=== PATIENT | female | born 1980 | race Caucasian/White ===

== ENCOUNTER 2017-01-05 22:22 | Emergency (ER) | payer SELFPAY ==
--- NOTE | 2017-01-05 23:04 | ED CLINICAL REPORT ---
Clinical Report - Physicians/Mid Levels [facility] [address] [place] [address] 01/05/2017 22:21 Patient: ABHAY JAIN Time Seen: 2245; initial patient contact, initial documentation, patient care assumed. Arrived- By private vehicle. Historian- patient. HISTORY OF PRESENT ILLNESS Chief Complaint: SORE THROAT. This started yesterday and is still present. Pain described as moderate. The patient has had a sore throat. No mouth sores, nasal discharge or ear pain. Similar symptoms previously: None. Recent medical care: Not recently seen/assessed. REVIEW OF SYSTEMS The patient has had fever of 103 F and enlarged lymph nodes. No cough or difficulty breathing. All systems otherwise negative, except as recorded above. PAST HISTORY See nurses notes. PROBLEMS: Vaginitis. --22:37 Johnnie Brandt RDevonteN. ADDITIONAL SURGERIES: no known surgeries. SOCIAL HISTORY Heavy tobacco smoker. History of occasional drug use: marijuana. No alcohol use. No recent travel. Is a local resident. FAMILY HISTORY Negative. ADDITIONAL NOTES The nursing notes have been reviewed with agreement regarding the chief complaint, HPI, ROS, PMH and patient medications and allergies. PHYSICAL EXAM Vital Signs: 01/05/2017 22:34 BP: 102/67. HR: 102. RR: 17. O2 saturation: 99%. Temp: 98.3 F. Pain level now: 6/10. Have been reviewed as normal and appear to be correct. Appearance: Alert. No acute distress. Head: Normal external inspection. Eyes: Pupils equal, round and reactive to light. Conjunctivae and eyelids normal. ENT: Ears normal. Nose normal. Pharynx abnormal. Right-sided tonsillar exudate, swelling and erythema. Left-sided tonsillar exudate, swelling and erythema (+2 hypertrophy). No right tonsillar abscess or left tonsillar abscess. No membrane suggesting mononucleosis. Lips normal. Gums normal. No trismus present. Uvula midline. Neck: Lymphadenopathy. Thyroid not normal. Neck not supple. Abnormal inspection. Moderate right anterior neck and moderate left anterior neck lymphadenopathy present. Trachea midline. Respiratory: No respiratory distress. Skin: Normal skin color. No rash. Normal skin turgor. Extremities: Extremities exhibit normal ROM. Extremities nontender. Neuro: Oriented X 3. No motor deficit. No sensory deficit. PROGRESS AND PROCEDURES Patient counseled in person regarding the patient's stable condition and diagnosis. 23:03. Differential Diagnosis: Other possible considerations: pharyngitis, tonsillitis, mono, tonsillar abscess, flu, viral illness. Above considerations are based on history and physical exam. Differential diagnosis was discussed with patient. Disposition: Discharged home in good and improved condition (23:03). Condition: good and stable. CLINICAL IMPRESSION Acute exudative streptococcal tonsillitis INSTRUCTIONS Alternate Tylenol (Acetaminophen) and Motrin (Ibuprofen) for fever, temperature greater than 101 degrees. Take according to label instructions. Do not work today, for two days. Drink plenty of fluids for the next 24 hours until better. Warnings: GENERAL WARNINGS: Return or contact your physician immediately if your condition worsens or changes unexpectedly, if not improving as expected, or if other problems arise. Specifically return if problem worsens. Prescription Medications: Zofran 4 mg: Take 1 orally every six hours as needed for nausea/vomiting. Dispense ten (10). No refills. Substitution is permissible. Amoxicillin 500 mg tablets: Take 1 orally every 8 hours for 10 days. Dispense thirty (30). No refills. Motrin 600 mg tablets: take 1 tablet orally every 6 hours as needed for pain or fever. Dispense thirty (30). No refill. Follow-up: Follow up with your doctor in about three days even if well. Call for an appointment. Summary of care provided to patient. Understanding of the discharge instructions verbalized by patient. (Electronically signed by Luna Kay A.R.N.P. 01/05/2017 23:58)
--- NOTE | 2017-01-05 23:04 | ED ORDER SUMMARY ---
..... Patient: ABHAY JAIN OrderSheet [facility] VisitID: [id number] [address] [place] [address] 36y, F Registration Date/Time: 01/05/2017 ORDER SHEET Weight: 90.7 kg (stated) Allergies: No Known Drug Allergy GENERAL ORDERS: Rapid Influenza Screen (Nasal Pharyngeal) (swab) Urgent (22:44 01/05/2017 JQuivey R.N. per protocol) (Ack 22:48 Marleneekima) (23:30 JQuivey R.N.) Culture, Strep Screen Urgent (22:44 01/05/2017 JQuivey R.N. per protocol) (Ack 22:[facility] (23:30 JQuivey R.N.) MEDICATION ORDERS: IV FLUIDS: ORDER SHEET NOTES: [Electronically signed by Johnnie Brandt R.N. (23:35 01/05/2017)] [Electronically signed by Luna KayNDevontePDevonte (23:58 01/05/2017)] [Electronically locked/signed by Johnnie Brandt R.N. (23:35 01/05/2017)]
--- NOTE | 2017-01-05 23:04 | ED ORDER SUMMARY ---
..... Patient: ABHAY JAIN OrderSheet [facility] VisitID: [id number] [address] [place] [address] 36y, F Registration Date/Time: 01/05/2017 ORDER SHEET Weight: 90.7 kg (stated) Allergies: No Known Drug Allergy GENERAL ORDERS: Rapid Influenza Screen (Nasal Pharyngeal) (swab) Urgent (22:44 01/05/2017 JQuivey R.N. per protocol) (Ack 22:48 Marleneekima) (23:30 JQuivey R.N.) Culture, Strep Screen Urgent (22:44 01/05/2017 JQuivey R.N. per protocol) ([facility]ck 22:[facility] (23:30 JQuivey R.N.) MEDICATION ORDERS: IV FLUIDS: ORDER SHEET NOTES: [Electronically signed by Johnnie Brandt R.N. (23:35 01/05/2017)] [Electronically signed by Luna KayNDevontePDevonte (23:58 01/05/2017)] [Electronically locked/signed by Johnnie Brandt R.N. (23:35 01/05/2017)]
--- NOTE | 2017-01-05 23:04 | ED NURSING NOTES ---
Clinical Report - Nurses [facility] [address] [address] 01/05/2017 22:21 Patient: ABHAY JAIN TRIAGE Triage time 22:35. Acuity: LEVEL 3. Chief Complaint: FEVER, MUSCLE ACHES and SORE THROAT (Swollen glands). 22:38. Alert. SEPSIS SCREEN: Sepsis Screen. Negative (no infection suspected/documented). --22:38 Johnnie Brandt R.N. 22:34 01/05/17. BP: 102/67. HR: 102. RR: 17. O2 saturation: 99% on room air. Temp: 98.3 F (oral). Pain level now: 04/27. --22:38 Johnnie Brandt R.N. Weight: 90.7 kg stated. Height/Length: 73 inches Per Patient. BMI: 26.4. --22:36 Johnnie Brandt R.N. Medications None. --22:37 Johnnie Brandt R.N. Allergies No Known Drug Allergy. --22:37 Johnnie Brandt R.N. History Arrived by private vehicle. Historian: patient. Accompanied by friend. Primary physician (None). Onset. (Saturday). 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 PAST MEDICAL HX: Immunizations: up-to-date. Last normal menstrual period- 9 years ago. Uses an intrauterine device. SOCIAL HX: Current every day heavy tobacco smoker- less than 1 pack per day. History of occasional drug use: marijuana. No alcohol use. No infectious disease exposure. ABUSE ASSESSMENT: No report of abuse. FALL RISK ASSESSMENT: Fall risk assessment completed. No fall risk identified. NUTRITIONAL RISK ASSESSMENT: The nutritional risk assessment revealed no deficiencies. FUNCTIONAL ASSESSMENT: Functional assessment: no impairments noted. LEARNING NEEDS ASSESSMENT: The learning needs assessment revealed no barriers. SKIN INTEGRITY ASSESSMENT: Skin integrity risk assessment completed. No skin integrity risk identified. --22:38 Johnnie Brandt R.N. PROBLEMS: Vaginitis. --22:37 Johnnie Brandt R.N. ADDITIONAL SURGERIES: no known surgeries. Interventions ID band on patient. To treatment room. --22:38 Johnnie Brandt R.N. PHYSICAL ASSESSMENT 22:39. Ambulatory to room. Patient gowned. GENERAL / NEURO / PSYCH: Alert. Oriented X 4. HEENT: No facial asymmetry noted. Mucous membranes are pink. RESPIRATORY: Respirations not labored. SKIN: Skin intact. Skin is warm and dry. Normal skin turgor. --22:39 Johnnie Brandt R.N. NURSING PROGRESS NOTES 22:39. Head of bed elevated. Two patient identifiers checked. Call light placed in reach. Bed placed in lowest position. Brakes of bed on. Patient ready for evaluation- chart flagged. --22:39 Johnnie Brandt R.N. 22:43. Patient ID band checked for patient name and birthdate: patient confirmed. Flu swab obtained by RN via nasal pharyngeal swab. Labeled in the presence of the patient and sent to lab. Patient ID band checked for patient name and birthdate: patient confirmed. Throat swab obtained for rapid strep; labeled in the presence of the patient and sent to lab. --22:43 Johnnie Brandt R.N. 23:30. The patient is calm and resting quietly. RESPIRATORY: No respiratory distress. SKIN: Skin is warm and dry. Skin color within normal limits. --23:35 Johnnie Brandt R.N. DISPOSITION / DISCHARGE Departure time: 23:33. Condition at departure: stable. No learning barriers present. Reviewed medication(s) side effects, precautions, dosing and course information. Prescription(s) given to the patient. Patient verbalized understanding. Written instructions provided in Wolof. The patient was discharged home and accompanied by pals nurse. She left the Emergency Department ambulatory and via private vehicle. Sample Paster driving. FALL RISK ASSESSMENT: Fall risk assessment completed. No fall risk identified. --23:35 Johnnie Brandt R.N. 23:30 01/05/17. BP: 106/61. HR: 99. RR: 17. O2 saturation: 97% on room air. Pain level now: 01/25. --23:35 Johnnie Brandt R.N. Locked/Released at 01/05/2017 23:35 by Johnnie Brandt R.N.
--- NOTE | 2017-01-05 23:04 | ED NURSING NOTES ---
Clinical Report - Nurses [facility] [address] [place] [address] 01/05/2017 22:21 Patient: ABHAY JAIN TRIAGE Triage time 22:35. Acuity: LEVEL 3. Chief Complaint: FEVER, MUSCLE ACHES and SORE THROAT (Swollen glands). 22:38. Alert. SEPSIS SCREEN: Sepsis Screen. Negative (no infection suspected/documented). --22:38 Johnnie Brandt R.N. 22:34 01/05/17. BP: 102/67. HR: 102. RR: 17. O2 saturation: 99% on room air. Temp: 98.3 F (oral). Pain level now: 04/27. --22:38 Johnnie Brandt R.N. Weight: 90.7 kg stated. Height/Length: 73 inches Per Patient. BMI: 26.4. --22:36 Johnnie Brandt R.N. Medications None. --22:37 Johnnie Brandt R.N. Allergies No Known Drug Allergy. --22:37 Johnnie Brandt R.N. History Arrived by private vehicle. Historian: patient. Accompanied by friend. Primary physician (None). Onset. (Saturday). 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 PAST MEDICAL HX: Immunizations: up-to-date. Last normal menstrual period- 9 years ago. Uses an intrauterine device. SOCIAL HX: Current every day heavy tobacco smoker- less than 1 pack per day. History of occasional drug use: marijuana. No alcohol use. No infectious disease exposure. ABUSE ASSESSMENT: No report of abuse. FALL RISK ASSESSMENT: Fall risk assessment completed. No fall risk identified. NUTRITIONAL RISK ASSESSMENT: The nutritional risk assessment revealed no deficiencies. FUNCTIONAL ASSESSMENT: Functional assessment: no impairments noted. LEARNING NEEDS ASSESSMENT: The learning needs assessment revealed no barriers. SKIN INTEGRITY ASSESSMENT: Skin integrity risk assessment completed. No skin integrity risk identified. --22:38 Johnnie Brandt R.N. PROBLEMS: Vaginitis. --22:37 Johnnie Brandt R.N. ADDITIONAL SURGERIES: no known surgeries. Interventions ID band on patient. To treatment room. --22:38 Johnnie Brandt R.N. PHYSICAL ASSESSMENT 22:39. Ambulatory to room. Patient gowned. GENERAL / NEURO / PSYCH: Alert. Oriented X 4. HEENT: No facial asymmetry noted. Mucous membranes are pink. RESPIRATORY: Respirations not labored. SKIN: Skin intact. Skin is warm and dry. Normal skin turgor. --22:39 Johnnie Brandt R.N. NURSING PROGRESS NOTES 22:39. Head of bed elevated. Two patient identifiers checked. Call light placed in reach. Bed placed in lowest position. Brakes of bed on. Patient ready for evaluation- chart flagged. --22:39 Johnnie Brandt R.N. 22:43. Patient ID band checked for patient name and birthdate: patient confirmed. Flu swab obtained by RN via nasal pharyngeal swab. Labeled in the presence of the patient and sent to lab. Patient ID band checked for patient name and birthdate: patient confirmed. Throat swab obtained for rapid strep; labeled in the presence of the patient and sent to lab. --22:43 Johnnie Brandt R.N. 23:30. The patient is calm and resting quietly. RESPIRATORY: No respiratory distress. SKIN: Skin is warm and dry. Skin color within normal limits. --23:35 Johnnie Brandt R.N. DISPOSITION / DISCHARGE Departure time: 23:33. Condition at departure: stable. No learning barriers present. Reviewed medication(s) side effects, precautions, dosing and course information. Prescription(s) given to the patient. Patient verbalized understanding. Written instructions provided in Yakut. The patient was discharged home and accompanied by laminating machine feeder. She left the Emergency Department ambulatory and via private vehicle. 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 FALL RISK ASSESSMENT: Fall risk assessment completed. No fall risk identified. --23:35 Johnnie Brandt R.N. 23:30 01/05/17. BP: 106/61. HR: 99. RR: 17. O2 saturation: 97% on room air. Pain level now: 01/25. --23:35 Johnnie Brandt R.N. Locked/Released at 01/05/2017 23:35 by Johnnie Brandt R.N.
--- NOTE | 2017-01-05 23:59 | ED MED RECONCILIATION SUMMARY ---
Patient: ABHAY JAIN Medication Reconciliation Report [facility] VisitID: [id number] [address] [place] [address] 36y, F Registration Date/Time: 01/05/2017 Weight: 90.7 kg Height/Length: 73 in. BMI: 26.4 ALLERGIES: No Known Drug Allergy The patient's Home Medications are listed below: NONE. The source(s) of the original Home Medication information: Not obtained. The following Medications were given to the patient in the Emergency Department: None. The following Medications were prescribed to the patient: Zofran 4 mg: Take 1 orally every six hours as needed for nausea/vomiting. Dispense ten (10). No refills. Substitution is permissible. -- Luna Kay, A.R.N.P. Amoxicillin 500 mg tablets: Take 1 orally every 8 hours for 10 days. Dispense thirty (30). No refills. -- Luna Kay, A.R.N.P. Motrin 600 mg tablets: take 1 tablet orally every 6 hours as needed for pain or fever. Dispense thirty (30). No refill. -- Luna Kay A.R.N.P.
--- NOTE | 2017-01-05 23:59 | ED MAR SUMMARY ---
..... Medication Administration Record [facility] [address], [place] [id number] Patient: ABHAY JAIN Visit ID: [id number] 36y, F Weight: 90.7 kg Height/Length: 73 in BMI: 26.4 ALLERGIES: No Known Drug Allergy
--- NOTE | 2017-01-05 23:59 | ED MED RECONCILIATION SUMMARY ---
Patient: ABHAY JAIN Medication Reconciliation Report [facility] VisitID: [id number] [address] [place] [address] 36y, F Registration Date/Time: 01/05/2017 Weight: 90.7 kg Height/Length: 73 in. BMI: 26.4 ALLERGIES: No Known Drug Allergy The patient's Home Medications are listed below: NONE. The source(s) of the original Home Medication information: Not obtained. The following Medications were given to the patient in the Emergency Department: None. The following Medications were prescribed to the patient: Zofran 4 mg: Take 1 orally every six hours as needed for nausea/vomiting. Dispense ten (10). No refills. Substitution is permissible. -- Luna Kay, A.R.N.P. Amoxicillin 500 mg tablets: Take 1 orally every 8 hours for 10 days. Dispense thirty (30). No refills. -- Luna Kay, A.R.N.P. Motrin 600 mg tablets: take 1 tablet orally every 6 hours as needed for pain or fever. Dispense thirty (30). No refill. -- Luna Kay A.R.N.P.
--- NOTE | 2017-01-05 23:59 | ED MAR SUMMARY ---
..... Medication Administration Record [facility] [address] [id number] Patient: ABHAY JAIN Visit ID: [id number] 36y, F Weight: 90.7 kg Height/Length: 73 in BMI: 26.4 ALLERGIES: No Known Drug Allergy
--- NOTE | 2017-01-05 23:59 | ED DISCHARGE INSTRUCTIONS ---
Patient: ABHAY JAIN General Instructions [facility] VisitID: [id number] [address] [place] [address] 36y, F Registration Date/Time: 01/05/2017 Acute exudative streptococcal tonsillitis INSTRUCTIONS Alternate Tylenol (Acetaminophen) and Motrin (Ibuprofen) for fever, temperature greater than 101 degrees. Take according to label instructions. Do not work today, for two days. Drink plenty of fluids for the next 24 hours until better. Warnings: GENERAL WARNINGS: Return or contact your physician immediately if your condition worsens or changes unexpectedly, if not improving as expected, or if other problems arise. Specifically return if problem worsens. Prescription Medications: Zofran 4 mg: Take 1 orally every six hours as needed for nausea/vomiting. Dispense ten (10). No refills. Substitution is permissible. Amoxicillin 500 mg tablets: Take 1 orally every 8 hours for 10 days. Dispense thirty (30). No refills. Motrin 600 mg tablets: take 1 tablet orally every 6 hours as needed for pain or fever. Dispense thirty (30). No refill. Follow-up: Follow up with your doctor in about three days even if well. Call for an appointment. Summary of care provided to patient. Understanding of the discharge instructions verbalized by patient. ADDITIONAL INFORMATION Pharyngitis: Strep [Presumed] Your illness has the signs of a strep throat infection. Strep throat is a contagious illness. It is spread by coughing, kissing or by touching others after touching your mouth or nose. Symptoms include throat pain worse with swallowing, aching all over, headache and fever. You will be treated with an antibiotic, which should make you start to feel better within 1-2 days. Home Care: Rest at home and drink plenty of fluids to avoid dehydration. No school or work for the first two days on antibiotics. You will not be contagious after this time, and if you are feeling better, you can return to school or work. Take your antibiotics for a full 10 days, even if you feel better after the first few days of treatment. This is very important to prevent complications from the strep infection (such as heart or kidney disease). Children: Use acetaminophen (Tylenol) for fever, fussiness or discomfort. In infants over six months of age, you may use ibuprofen (Children's Motrin) instead of Tylenol. [NOTE: If your child has chronic liver or kidney disease or ever had a stomach ulcer or GI bleeding, talk with your doctor before using these medicines.] (Aspirin should never be used in anyone under 18 years of age who is ill with a fever. It may cause severe liver damage.) Adults: You may use acetaminophen (Tylenol) or ibuprofen (Motrin, Advil) to control pain or fever, unless another medicine was prescribed for this. [NOTE: If you have chronic liver or kidney disease or ever had a stomach ulcer or GI bleeding, talk with your doctor before using these medicines.] Throat lozenges or sprays (Chloraseptic and others) will reduce pain. Gargling with warm salt water will also reduce throat pain. Dissolve 1/2 teaspoon of salt in 1 glass of warm water. This is especially useful just before meals. Follow Up with your doctor or as directed by our staff if you are not improving over the next week. Get Prompt Medical Attention if any of the following occur: Fever over 100.5F (38.0C) oral, or over 101.5F (38.6C) rectal for more than three days New or worsening ear pain, sinus pain or headache Painful lumps in the back of your neck Unable to swallow liquids or open your mouth wide due to throat pain Trouble breathing or noisy breathing Muffled voice New rash Fever Control (Adult) A fever is a natural reaction of the body to an illness. In most cases, the temperature itself is not harmful. It actually helps the body fight infections. A fever does not need to be treated unless you feel very uncomfortable. Home Care If you feel warm, check your temperature. If you feel very uncomfortable and your temperature is at or higher than 100.4F (38C) oral, you may take acetaminophen (Tylenol) every 4 to 6 hours. If you cant take or keep down oral medicine, ask your pharmacist for Tylenol suppositories, which you can get without a prescription. If the fever does not respond to acetaminophen within 1 hour, take ibuprofen (Advil or Motrin). If this works, keep taking the ibuprofen every 6 to 8 hours. Note: If you have chronic liver or kidney disease or ever had a stomach ulcer or GI bleeding, talk with your doctor before using these medications. If either medication alone does not keep the fever down, you may alternate the two medicines every 3 to 4 hours, only if your healthcare provider has instructed you to do so. For example, take Motrin then wait 3 hours, take Tylenol then wait 3 hours, take Motrin, and so on. Follow your healthcare providers instructions exactly. Clothing: Keep clothing light because excess body heat is lost through the skin. The fever will go up if you wear extra layers or wrap in blankets. Fluids: Fever causes the body to lose water through evaporation. Drink plenty of fluids such as water, juice, clear sodas, hernandez krystal, or lemonade. Do not use aspirin in anyone under 18 years of age who is ill with a fever. It can cause severe liver damage. Follow Up with your doctor or as advised by our staff if you do not get better after 48 hours. Get Prompt Medical Attention if any of the following occur: Fever does not get better after taking fever medication Fast or difficult breathing Earache, sinus pain, stiff or painful neck, headache, repeated diarrhea or vomiting You feel unusually irritable, drowsy, or confused A rash appears You feel weak or dizzy, or that you might faint Ondansetron Oral disintegrating tablet What is this medicine? ONDANSETRON (on RADHA se madeleine) is used to treat nausea and vomiting caused by chemotherapy. It is also used to prevent or treat nausea and vomiting after surgery. How should I use this medicine? These tablets are made to dissolve in the mouth. Do not try to push the tablet through the foil backing. With dry hands, peel away the foil backing and gently remove the tablet. Place the tablet in the mouth and allow it to dissolve, then swallow. While you may take these tablets with water, it is not necessary to do so. Talk to your loss prevention coordinator regarding the use of this medicine in children. Special care may be needed. What side effects may I notice from receiving this medicine? Side effects that you should report to your doctor or health lawn care worker as soon as possible: allergic reactions like skin rash, itching or hives, swelling of the face, lips, or tongue breathing problems dizziness fast or irregular heartbeat feeling faint or lightheaded, falls fever and chills swelling of the hands and feet tightness in the chest Side effects that usually do not require medical attention (report to your doctor or health lawn care worker if they continue or are bothersome): constipation or diarrhea headache What may interact with this medicine? Do not take this medicine with any of the following medications: -apomorphine -cisapride -dofetilide -dronedarone -pimozide -thioridazine -ziprasidone This medicine may also interact with the following medications: -carbamazepine -phenytoin -rifampicin -tramadol -other medicines that prolong the QT interval (cause an abnormal heart rhythm) What if I miss a dose? If you miss a dose, take it as soon as you can. If it is almost time for your next dose, take only that dose. Do not take double or extra doses. Where should I keep my medicine? Keep out of the reach of children. Store between 2 and 30 degrees C (36 and 86 degrees F). Throw away any unused medicine after the expiration date. What should I tell my health care provider before I take this medicine? They need to know if you have any of these conditions: heart disease history of irregular heartbeat liver disease low levels of magnesium or potassium in the blood an unusual or allergic reaction to ondansetron, granisetron, other medicines, foods, dyes, or preservatives or trying to get breast-feeding What should I watch for while using this medicine? Check with your doctor or health lawn care worker as soon as you can if you have any sign of an allergic reaction. Amoxicillin Trihydrate Oral tablet What is this medicine? AMOXICILLIN (a mox i GERA in) is a penicillin antibiotic. It is used to treat certain kinds of bacterial infections. It will not work for colds, flu, or other viral infections. How should I use this medicine? Take this medicine by mouth with a glass of water. Follow the directions on your prescription label. You may take this medicine with food or on an empty stomach. Take your medicine at regular intervals. Do not take your medicine more often than directed. Take all of your medicine as directed even if you think your are better. Do not skip doses or stop your medicine early. Talk to your loss prevention coordinator regarding the use of this medicine in children. While this drug may be prescribed for selected conditions, precautions do apply. What side effects may I notice from receiving this medicine? Side effects that you should report to your doctor or health lawn care worker as soon as possible: allergic reactions like skin rash, itching or hives, swelling of the face, lips, or tongue breathing problems dark urine redness, blistering, peeling or loosening of the skin, including inside the mouth seizures severe or watery diarrhea trouble passing urine or change in the amount of urine unusual bleeding or bruising unusually weak or tired yellowing of the eyes or skin Side effects that usually do not require medical attention (report to your doctor or health lawn care worker if they continue or are bothersome): dizziness headache stomach upset trouble sleeping What may interact with this medicine? amiloride control pills chloramphenicol macrolides probenecid sulfonamides tetracyclines What if I miss a dose? If you miss a dose, take it as soon as you can. If it is almost time for your next dose, take only that dose. Do not take double or extra doses. Where should I keep my medicine? Keep out of the reach of children. Store between 68 and 77 degrees F (20 and 25 degrees C). Keep bottle closed tightly. Throw away any unused medicine after the expiration date. What should I tell my health care provider before I take this medicine? They need to know if you have any of these conditions: asthma kidney disease an unusual or allergic reaction to amoxicillin, other penicillins, cephalosporin antibiotics, other medicines, foods, dyes, or preservatives or trying to get breast-feeding What should I watch for while using this medicine? Tell your doctor or health lawn care worker if your symptoms do not improve in 2 or 3 days. Take all of the doses of your medicine as directed. Do not skip doses or stop your medicine early. If you are diabetic, you may get a false positive result for sugar in your urine with certain brands of urine tests. Check with your doctor. Do not treat diarrhea with [id number] products. Contact your doctor if you have diarrhea that lasts more than 2 days or if the diarrhea is severe and watery. Ibuprofen Oral tablet What is this medicine? IBUPROFEN (eye BYOO proe fen) is a non-steroidal anti-inflammatory drug (NSAID). It is used for dental pain, fever, headaches or migraines, osteoarthritis, rheumatoid arthritis, or painful monthly periods. It can also relieve minor aches and pains caused by a cold, flu, or sore throat. How should I use this medicine? Take this medicine by mouth with a glass of water. Follow the directions on the prescription label. Take this medicine with food if your stomach gets upset. Try to not lie down for at least 10 minutes after you take the medicine. Take your medicine at regular intervals. Do not take your medicine more often than directed. A special MedGuide will be given to you by the pharmacist with each prescription and refill. Be sure to read this information carefully each time. Talk to your loss prevention coordinator regarding the use of this medicine in children. Special care may be needed. What side effects may I notice from receiving this medicine? Side effects that you should report to your doctor or health lawn care worker as soon as possible: allergic reactions like skin rash, itching or hives, swelling of the face, lips, or tongue black or bloody stools, blood in the urine or in vomit breathing problems changes in vision chest pain general ill feeling or flu-like symptoms nausea or vomiting redness, blistering, peeling or loosening of the skin, including inside the mouth slurred speech or weakness on one side of the body stomach pain unexplained weight gain or swelling unusually weak or tired yellowing of eyes or skin Side effects that usually do not require medical attention (report to your doctor or health lawn care worker if they continue or are bothersome): constipation or diarrhea dizziness gas or heartburn stomach upset What may interact with this medicine? Do not take this medicine with any of the following medications: cidofovir ketorolac methotrexate pemetrexed This medicine may also interact with the following medications: alcohol aspirin diuretics lithium other drugs for inflammation like prednisone warfarin What if I miss a dose? If you miss a dose, take it as soon as you can. If it is almost time for your next dose, take only that dose. Do not take double or extra doses. Where should I keep my medicine? Keep out of the reach of children. Store at room temperature between 15 and 30 degrees C (59 and 86 degrees F). Keep container tightly closed. Throw away any unused medicine after the expiration date. What should I tell my health care provider before I take this medicine? They need to know if you have any of these conditions: asthma cigarette smoker drink more than 3 alcohol containing drinks a day heart disease or circulation problems such as heart failure or leg edema (fluid retention) high blood pressure kidney disease liver disease stomach bleeding or ulcers an unusual or allergic reaction to ibuprofen, aspirin, other NSAIDS, other medicines, foods, dyes, or preservatives or trying to get breast-feeding What should I watch for while using this medicine? Tell your doctor or healthcare professional if your symptoms do not start to get better or if they get worse. This medicine does not prevent heart attack or stroke. In fact, this medicine may increase the chance of a heart attack or stroke. The chance may increase with longer use of this medicine and in people who have heart disease. If you take aspirin to prevent heart attack or stroke, talk with your doctor or health lawn care worker. Do not take other medicines that contain aspirin, ibuprofen, or naproxen with this medicine. Side effects such as stomach upset, nausea, or ulcers may be more likely to occur. Many medicines available without a prescription should not be taken with this medicine. This medicine can cause ulcers and bleeding in the stomach and intestines at any time during treatment. Ulcers and bleeding can happen without warning symptoms and can cause . To reduce your risk, do not smoke cigarettes or drink alcohol while you are taking this medicine. You may get drowsy or dizzy. Do not drive, use machinery, or do anything that needs mental alertness until you know how this medicine affects you. Do not stand or sit up quickly, especially if you are an older patient. This reduces the risk of dizzy or fainting spells. This medicine can cause you to bleed more easily. Try to avoid damage to your teeth and gums when you brush or floss your teeth. You have been given the following additional information: Pharyngitis, Strep (Presumed) Fever Control (Adult) Ondansetron Oral disintegrating tablet Amoxicillin Trihydrate Oral tablet Ibuprofen Oral tablet Do not work today, for two days. (Electronically signed by Luna Kay A.R.N.P. 01/05/2017 23:58)
== END 2017-01-05 23:33 | disposition home or self-care (01) ==
LOC: ED SRH 22:22
DX: J02.0 Streptococcal pharyngitis (principal); F17.210 Nicotine dependence, cigarettes, uncomplicated
CPT/HCPCS: 90154; 90159; 90627; 91400